=== PATIENT | male | born 1990 | race Caucasian/White ===

== ENCOUNTER 2021-01-23 17:35 | Emergency (ER) | payer MEDICAID ==
[~2021-01-23] VITALS: Ht 185.4 cm; Wt 110.9 kg
[2021-01-23] MEDS ORDERED: METH40TA3 PO (18:16)
--- NOTE | 2021-01-23 18:40 | NUR ---
Report received from meal break Virgil [facility], and care raheel.
[2021-01-23] MEDS ORDERED: HYDROcodone/APAP 5/325 TABLET PO ONE (19:30)
[2021-01-23] MEDS ORDERED: AMOXICILLIN 500 MG CAPSULE PO ONE (19:30)
[2021-01-23] MEDS ORDERED: AMOXICILLIN 500 MG CAPSULE ONE (19:40)
[2021-01-23] MEDS ORDERED: HYDROcodone/APAP 5/325 TABLET ONE (19:41)
[2021-01-23 20:23] VITALS: BP 125/62
== END 2021-01-23 20:26 | disposition home or self-care (01) ==
LOC: ED 20:00
DX: K04.7 Periapical abscess without sinus (principal)
CPT/HCPCS: 99283